=== PATIENT | female | born 1995 | race Caucasian/White ===

== ENCOUNTER 2017-05-24 20:31 | Emergency (ER) | payer BC, MEDICAID ==
[~2017-05-24] VITALS: Ht 162.6 cm; Wt 106.1 kg
[2017-05-24 20:31] VITALS: BP_SYST 105
--- NOTE | 2017-05-24 20:31 | NUR ---
Patient to ER bed 1 to gown for evaluation. Side rails up. Seizure precautions initated. Report given to Mini LYLE.
--- NOTE | 2017-05-24 20:40 | NUR ---
Patient AOx4, BIB wheelchair presents to ER after falling getting out of a car and fell face forward post seizure episode. Patient states hx of seizures. No other symptoms or complaints at this time.
--- NOTE | 2017-05-24 20:55 | NUR ---
MERNA Clarke at bedside for medical evaluation.
[2017-05-24] MEDS ORDERED: ONDANSETRON 4 MG ODT TAB PO ONE (21:00)
[2017-05-24] MEDS ORDERED: ONDANSETRON HCL 4 MG/2 ML VIAL IVP ONE (21:15)
--- NOTE | 2017-05-24 21:25 | NUR ---
# 20 gauge angiocath placed to LAC. Use of asceptic technique. Opsite placed over site. Blood return noted. Blood for lab drawn from site. Flushed with 10 cc of normal saline. No evidence of infiltration noted. Patient tolerated well.
[2017-05-24 21:47] LABS: BASOPHILS % (AUTO) 0.2 % (0.0-2.0); EOSINOPHILS # (AUTO) 0.1 K/uL (0.0-0.4); EOSINOPHILS % (AUTO) 0.7 % (0.0-4.0); HEMATOCRIT 38.3 % (36-48); HEMOGLOBIN 12.8 g/dL (12.0-16.0); LYMPHOCYTES # (AUTO) 1.7 K/uL (1.0-5.5); LYMPHOCYTES % (AUTO) 17.8 % (20.5-51.5); MEAN CORPUSCULAR HEMOGLOBIN 28 pg (27-31); MEAN CORPUSCULAR HGB CONC 34 % (32-36); MEAN CORPUSCULAR VOLUME 83 fL (79.0-98.0); MONOCYTES # (AUTO) 0.5 K/uL (0.0-1.0); MONOCYTES % (AUTO) 5.3 % (1.7-9.3); NEUTROPHILS # (AUTO) 7.1 K/uL (1.8-7.7); PLATELET COUNT (AUTO) 352 K/uL (130-430); RED BLOOD CELL COUNT(AUTO) 4.59 MIL/uL (4.2-6.2); RED CELL DISTRIBUTION WIDTH 11.7 % (9.0-15.0); WHITE BLOOD COUNT (AUTO) 9.4 K/uL (4.8-10.8)
--- NOTE | 2017-05-24 21:57 | NUR ---
No adverse reactions noted after medication administration. Will continue to monitor.
[2017-05-24 22:03] LABS: ANION GAP 9 (5-15); CALCIUM 9.1 mg/dL (8.4-11.0); CHLORIDE 107 mmol/L (98-107); CREATININE 0.62 mg/dL (0.55-1.30); GLUCOSE 104 mg/dL (70-99); POTASSIUM 3.4 mmol/L (3.5-5.1); SODIUM SERUM 138 mmol/L (136-145); UREA NITROGEN, BLOOD 8 mg/dL (8-21)
[2017-05-24 22:07] LABS: ALANINE AMINOTRANSFERASE 13 U/L (12-78); ALBUMIN 3.8 g/dL (3.4-4.8); ASPARTATE AMINOTRANSFERASE 9 U/L (10-37); CARBAMAZEPINE (TEGRETOL) < 0 ug/mL (4-12); TOTAL BILIRUBIN 0.2 mg/dL (0.0-1.0)
[2017-05-24 22:17] LABS: GFR AFRICAN AMERICAN 155 mL/min (>90)
--- NOTE | 2017-05-24 23:00 | NUR ---
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
--- NOTE | 2017-05-24 23:20 | NUR ---
Patient resting comfortably. No acute distress noted at this time. Sister at bedside.
[2017-05-25] MEDS ORDERED: ACETAMINOPHEN 325 MG TABLET PO ONE
[2017-05-25 00:08] VITALS: BP_SYST 112
--- NOTE | 2017-05-25 00:08 | NUR ---
Patient given written and verbal discharge instructions and verbalizes understanding. ER MD discussed with patient the results and treatment provided. Patient in stable condition. ID arm band removed. IV catheter removed intact and dressing applied, no active bleeding. Patient educated on pain management and to follow up with PMD. Pain Scale 2/10 tolerable to patient. Opportunity for questions provided and answered.
== END 2017-05-25 00:08 | disposition home or self-care (01) ==
LOC: SED 20:31
DX: R56.9 Unspecified convulsions (principal)
CPT/HCPCS: 36415; 80053; 80156; 85025; 96374; 99284; J2405; Q0162